=== PATIENT | male | born 1940 | race Caucasian/White ===

== ENCOUNTER 2016-04-23 07:41 | Day surgery (SDC) | payer MEDICARE, BC ==
[2016-04-23] MEDS ORDERED: LIDOCAINE 2% MDV (20MG/ML) 20ML VIAL IV ONE (14:00)
[2016-04-23] MEDS ORDERED: PROPOFOL 10 MG/ML VIAL IV ONE (14:00)
--- NOTE | 2016-04-23 14:05 | Operative Note ---
DATE OF SURGERY: 04/23/2016. DICTATING TACKER OFF: Arvin Longoria D.O. dictating for Mario Lee D.O. PREOPERATIVE INDICATION: This is a 76-year-old male with a history of chronic diarrhea for the last nine months associated with mild weight loss. POSTOPERATIVE DIAGNOSIS: 1. Diminutive rectal polyp, removed with cold forceps and retrieved for pathology. 2. Normal terminal ileum. 3. Normal colon throughout with random biopsies obtained. 4. Mild left-sided diverticulosis. PROCEDURE: Colonoscopy with biopsy. ENDOSCOPIST: Mario Lee D.O. TACKER OFF: Arvin Longoria D.O. ANESTHESIA: Anesthesia was provided by the Anesthesia Department. COMPLICATIONS: None. PROCEDURE: The procedure was thoroughly explained to the patient including risks, benefits, and alternatives. The patient had an opportunity to have his questions answered and sign informed written consent. The patient was transported to the endoscopy suite and placed in the left lateral decubitus position. The procedure was begun with a digital rectal examination with no abnormalities felt. Good anal sphincter tone. A well- lubricated PCF-180 colonoscope was inserted into the rectum and advanced to the cecum under direct visualization. The appendiceal orifice and ileocecal valve were identified. The terminal ileum was intubated and appeared normal for several centimeters. The colonoscope was then withdrawn evaluating the colon again in detail. Retroflexion was performed in the ascending colon with no abnormalities seen. The colonoscope was straightened and slowly withdrawn. Random biopsies were obtained from the right and left sides of the colon. There was evidence of mild diverticulosis on the left side of the colon. The colonic mucosa otherwise appeared normal throughout. There was a diminutive rectal polyp removed with cold forceps in the distal rectum and retrieved. Retroflexion was performed in the rectum with no abnormalities seen. The colonoscope was straightened and the rectum was decompressed as the colonoscope was withdrawn. The patient tolerated the procedure well and will be transported to Recovery in stable condition. Findings of the examination will be discussed with the patient in Recovery. RECOMMENDATIONS: 1. Increase dietary fiber. 2. Await random biopsies. 3. Follow up with primary care physician; gastroenterology office follow up as needed. MARIO LEE D.O. Date Time cc: Angus Brunner D.O. Job Number: [id number] MTDD
[2016-04-26 15:35] LABS: t-Transglutaminase IgA 0.5 U/mL (())
== END 2016-04-23 10:20 | disposition home or self-care (01) ==
LOC: HOP 07:41
PROVIDERS: ATTEND Internal Medicine Gastroenterology
DX: K52.9 Noninfective gastroenteritis and colitis, unspecified (principal); K62.1 Rectal polyp; E78.00 Pure hypercholesterolemia, unspecified; K57.30 Diverticulosis of large intestine without perforation or abscess without bleeding

== ENCOUNTER 2017-07-23 16:37 | Emergency (ER) | payer MEDICARE ==
--- NOTE | 2017-07-23 16:55 | Emergency Department Record ---
History of Present Illness - General Chief Complaint: Numbness Stated Complaint: L SIDED NUMBNESS Time Seen by Provider: 07/23/17 16:45 Source: Patient Mode of Arrival: Ambulatory Limitations: No limitations - History of Present Illness Initial Comments: The patient is here due to developing L sided numbness just over an hour ago at home. The symptoms came on suddenly and lasted for about 10-15 minutes then slowly improved. When it was severe he had trouble walking but after improvement he was able to walk normally. Presently he is having very mild L arm numbness but that has been a chronic problems for some time. There was no reported CP, SOB, EVANS, visual changes, weakness, trauma, trouble with his vision or any trouble talking. The patient did drive himself to the ER and walk in with no difficulty. The patient did take a full dose ASA this AM and also when the symptoms started at 3:30. Onset/Timin -: Hour(s) Location: Ataxia, Left arm, Left leg History of same: Yes Place: Home Quality: Improving, Numb, Tingling Improves With: Time On Anticoagulants: No Associated Symptoms: Denies other symptoms Treatments Prior to Arrival: Aspirin - Gilberto Coma Scale Eye Response: (4) Open spontaneously Motor Response: (6) Obeys commands Verbal Response: (5) [place]ed [place] Total: 15 - Symptoms of Stroke Onset of Symptoms Date: 07/23/17 Onset of Symptoms Time: 15:30 Symptoms of stroke: Numbness - Related Data Allergies/Adverse Reactions: Allergies Allergy/AdvReac Type Severity Reaction Status Date / Time No Known Drug Allergies Allergy Verified 07/23/17 16:39 Travel Screening - Travel/Exposure Within Last 30 Days Have you traveled within the last 30 days?: No - Travel Symptoms Symptom Screening: None Review of Systems Constitutional: Denies: Chills, Fever Eyes: Denies: Eye discharge ENT: Denies: Congestion Respiratory: Denies: Cough, Dyspnea Past Medical History - SOCIAL HISTORY Smoking Status: Never smoker - RESPIRATORY Hx Respiratory Disorders: Yes Hx Pneumonia: Yes (summer 2014) - CARDIOVASCULAR Hx Cardio Disorders: Yes Hx Chest Pain: (n/a) Comment:: ?high cholesterol - NEURO Hx Neuro Disorders: Yes Hx Dementia: Yes ("poor memory") Hx TIA: Yes (2012) Comment:: mini stroke ~2012 states was here overnight for numbness in LLE - GI Hx GI Disorders: Yes Hx Abdominal Pain: Yes Hx Wt Loss/Wt Gain: Yes (15lbs in 8 months) Comment:: belching, gas, diarrhea - Hx Genitourinary Disorders: Yes Hx Prostate Problems: Yes (BPH) - ENDOCRINE Hx Endocrine Disorders: Yes Hx Diabetes: Yes Comment:: controlled with diet does not check blood sugars - MUSCULOSKELETAL Hx Musculoskeletal Disorders: Yes Hx Arthritis: Yes (hands, right shoulder) - PSYCH Hx Psych Problems: No - HEMATOLOGY/ONCOLOGY Hx Hematology/Oncology Disorders: No Family Medical History Any Significant Family History?: Yes Family Hx Comment (NOT TO BE USED IN PLACE OF ITEMS BELOW): brother - ALS Hx Alcohol Use: Father Hx Cancer: Father Hx Diabetes: Grandparents Hx Heart Disease: Mother *Stroke Comment: maternal aunt Physical Exam - General General Appearance: Alert, Oriented x3, Cooperative, No acute distress - Head Head exam: Atraumatic, Normocephalic, Normal inspection - Eye Eye exam: Normal appearance, PERRL, EOMI - ENT Throat exam: Normal inspection. negative: Tonsillar erythema, Tonsillar exudate - Neck Neck exam: Normal inspection, Full ROM. negative: Tenderness - Respiratory Respiratory exam: Normal lung sounds bilaterally. negative: Respiratory distress - Cardiovascular Cardiovascular Exam: Regular rate, Normal rhythm, Normal heart sounds - GI/Abdominal GI/Abdominal exam: Soft, Normal bowel sounds. negative: Tenderness - Extremities Extremities exam: Normal inspection, Full ROM, Normal capillary refill. negative: Tenderness - Back Back exam: Reports: Normal inspection - Neurological Neurological exam: Alert, Normal gait, Oriented X3. 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 He is back from CT and is back to normal. I did get him up walking and he is ambulating normally with a neg Drift and Rhomberg exams. 07/23/17 17:16 Reevaluation #2: The patient is doing very well at this time. He is still asymptomatic and does agree to the transfer to [facility]. 07/23/17 17:29 Reevaluation #3: I did discuss the case with Dr. Joyce at [facility] and he does accept the patient as a direct admission to the Stroke Team. 07/23/17 17:33 Medical Decision Making - Data Complexity MDM Data: Labs Ordered and/or Reviewed, X-Ray Ordered and/or Reviewed, EKG Ordered and/or Reviewed - Lab Data Result diagrams: 07/23/17 16:50 07/23/17 16:50 - EKG Data -: EKG Interpreted by Me EKG: No Acute Changes, Normal EKG - Radiology Data Radiology results: Report reviewed (Head CT: Neg.) Disposition Disposition: Transfer Clinical Impression: Numbness and tingling in left arm Disposition: Acute Care Hospital Transfer Transfer To: [facility] Reason For Transfer: Stroke Team Accepting Physician: Isiah Time Discussed w/Accepting Physician: 17:34 Condition: (2) Stable Forms: Patient Portal Access Time of Disposition: 17:34 Quality - Quality Measures Quality Measures: N/A - Blood Pressure Screening View Details: Yes Does Patient Have Any of the Following: No Blood Pressure Classification: Hypertensive Reading Systolic Measurement: 136 Diastolic Measurement: 112 Screening for High Blood Pressure: < First Hypertensive BP, F/U Documented > [ [id number]] First Hypertensive Follow-up Interventions: Referral to alternative/primary care provider.
[2017-07-23 16:56] LABS: BASO % 0.3 % (0-6); EOS % 1.8 % (0-6); GRAN % 63.2 % (47-80); HEMATOCRIT 40.5 % (42.0-52.0); HEMOGLOBIN 13.1 gm/dl (14.0-18.0); LYMPH % 26.4 % (16-45); MEAN CELL VOLUME 96.9 fl (81-97); MEAN CORPUSCULAR HEMOGLOBIN 31.3 pg (27-33); MEAN CORPUSCULAR HGB CONC 32.3 g/dl (32-36); MEAN PLATELET VOLUME 8.7 fl (7.4-10.4); MONO % 8.3 % (0-9); PLATELET COUNT 171 K/uL (130-400); RED BLOOD COUNT 4.18 M/uL (4.40-5.70); RED CELL DISTRIBUTION WIDTH 12.7 % (11.5-14.5); WHITE BLOOD COUNT W/O DIFF 6.5 K/uL (4.2-12.2)
[2017-07-23 17:10] LABS: BLOOD UREA NITROGEN 20 mg/dL (8-23); CREATININE 1.2 mg/dL (0.7-1.2); EST GLOMERULAR FILTRATION RATE > 60 mL/min
[2017-07-23 17:13] LABS: GLUCOSE,RANDOM 112 mg/dL (74-109)
[2017-07-23 17:16] LABS: CREATINE PHOSPHOKINASE 87 U/L (39-308)
[2017-07-23 17:18] LABS: CKMB 2.1 ng/mL (<6.73)
--- NOTE | 2017-07-25 07:51 | CT SCAN REPORT ---
EXAM: CT OF THE HEAD WITHOUT CONTRAST HISTORY: LEFT SIDED NUMBNESS. TECHNIQUE: Noncontrast CT of the head was obtained. Comparison: CT of the head 04/10/14. FINDINGS: No evidence of hemorrhage, extraaxial fluid collection, or major vessel infarction. The yap white matter differentiation is maintained. Mild periventricular and deep white matter low density changes are consistent with chronic microvascular ischemic disease, similar to previous exam. No mass effect or midline shift. The ventricles are normal. The basal cisterns are patent. The calvarium is intact. The paranasal sinuses and middle ear cavities are well aerated. IMPRESSION: NO ACUTE INTRACRANIAL ABNORMALITIES. JOB NUMBER: [id number] MTDD
== END 2017-07-23 19:50 | disposition short-term general hospital (02) ==
LOC: ER 16:37
DX: R20.0 Anesthesia of skin (principal); R27.0 Ataxia, unspecified; E11.9 Type 2 diabetes mellitus without complications; Z86.73 Personal history of transient ischemic attack (TIA), and cerebral infarction without residual deficits
CPT/HCPCS: 70450; 80048; 82550; 82553; 84484; 85025; 93005; 93010; 99284; 99285